=== PATIENT | male | born 1960 | race Caucasian/White ===

== ENCOUNTER 2016-12-17 10:12 | Emergency (ER) | payer OTHER ==
[~2016-12-17] VITALS: Ht 175.3 cm; Wt 90.7 kg
[2016-12-17 10:19] VITALS: BP 138/98
== END 2016-12-17 13:06 | disposition left against medical advice (07) ==
LOC: ER 10:12
DX: S61.211A Laceration without foreign body of left index finger without damage to nail, initial encounter (principal); Z53.21 Procedure and treatment not carried out due to patient leaving prior to being seen by health care provider; W45.8XXA Other foreign body or object entering through skin, initial encounter; Y93.89 Activity, other specified; Y99.8 Other external cause status; Y92.69 Other specified industrial and construction area as the place of occurrence of the external cause

== ENCOUNTER 2016-12-28 07:50 | Emergency (ER) | payer OTHER ==
[~2016-12-28] VITALS: Ht 175.3 cm; Wt 90.7 kg
[2016-12-28 08:47] VITALS: BP 140/93
== END 2016-12-28 09:26 | disposition home or self-care (01) ==
LOC: ER 07:50
DX: L03.011 Cellulitis of right finger (principal); Z91.041 Radiographic dye allergy status; Z88.1 Allergy status to other antibiotic agents
CPT/HCPCS: 10060